=== PATIENT | female | born 1965 | race Caucasian/White ===

== ENCOUNTER 2017-04-04 08:10 | Day surgery (SDC) | payer BC ==
[~2017-04-04] VITALS: Ht 172.7 cm; Wt 113.4 kg
[2017-04-04 09:24] VITALS: Ht 172.7 cm; Wt 113.4 kg
[2017-04-04] MEDS ORDERED: PROPOFOL 40 ML ONE (09:37)
[2017-04-04] MEDS ORDERED: LIDOCAINE 2% (SDV) 5 ML INJ ONE (09:37)
[2017-04-04] MEDS ORDERED: BENAZEPRIL PO (09:41)
[2017-04-04] MEDS ORDERED: AMLODIPINE PO (09:41)
[2017-04-04 09:52] VITALS: BP 127/83; PULSE 64; RESP 18
[2017-04-04 11:11] VITALS: BP 104/63; PULSE 68; RESP 12
--- NOTE | 2017-04-28 13:59 | GILP ---
DATE OF PROCEDURE: 04/04/2017 NAME OF PROCEDURES: Colonoscopy and biopsy. SURGEON: Jeramie Gandhi MD PREOPERATIVE DIAGNOSES: Rectal bleeding. POSTOPERATIVE DIAGNOSES: 1. Colonoscopy all the way to the cecum. 2. Small transverse colon polyp was removed using the biopsy forceps. 3. Internal hemorrhoids. INDICATION FOR THE PROCEDURE: Ms. Zhang is a 51-year-old female patient who had rectal bleeding . She never had screening colonoscopy. The procedure and possible complications were well explained to the patient. The patient understood and consented to the procedure. DESCRIPTION OF PROCEDURE: Under the influence of anesthesia, the colonoscope was carefully introduc ed in the rectum and under direct vision, it was advanced all the way to the cecum. FINDINGS: The patient had a small transverse colon polyp and it was removed using the biopsy forcep s. She was noted to have internal hemorrhoids. She tolerated the procedure very well and there was no complication from the procedure. At the end of the procedure, she was awake with stable vital signs and she was discharged home to the care of h er family. IMPRESSION: 1. Colonoscopy all the way to the cecum. 2. Small transverse colon polyp was removed using the biopsy forceps. 3. Internal hemorrhoids. PLAN: 1. Anusol-HC 2.5% cream at bedtime p.r.n. for rectal bleeding. 1. Next screening colonoscopy in 10 years. Dictated By: JERAMIE SCALES/ROBEL Conf#: [id number] DID#: [id number]
== END 2017-04-04 12:21 | disposition home or self-care (01) ==
LOC: GIL 08:10
PROVIDERS: ATTEND Internal Medicine Gastroenterology
DX: D12.3 Benign neoplasm of transverse colon (principal); K64.8 Other hemorrhoids; I10 Essential (primary) hypertension; R73.03 Prediabetes; E66.9 Obesity, unspecified; Z68.38 Body mass index [BMI] 38.0-38.9, adult
CPT/HCPCS: 45380; 88305; Z7610

== ENCOUNTER 2018-06-22 11:36 | Day surgery (SDC) | END 2018-06-22 15:24 | disposition home or self-care (01) ==